=== PATIENT | male | born 1965 | race Asian ===

== ENCOUNTER → 2016-10-14 | Outpatient (CLI) | payer MEDICAID ==
[~2016-10-14] MED LIST: ASPI-621 PO; CARV6.2512 PO; FURO-93 PO; LISI-167 PO; POTA20TA14 PO
== END | disposition home or self-care (01) ==
LOC: CFH 11:24
PROVIDERS: ATTEND Internal Medicine
DX: I51.7 Cardiomegaly (principal)
CPT/HCPCS: 71020

== ENCOUNTER → 2016-12-09 | Outpatient (CLI) | payer MEDICAID | END | disposition home or self-care (01) | LOC: CFH 13:33 | PROVIDERS: ATTEND Internal Medicine Gastroenterology | DX: Z12.11 Encounter for screening for malignant neoplasm of colon (principal); K74.69 Other cirrhosis of liver; B18.2 Chronic viral hepatitis C; K29.70 Gastritis, unspecified, without bleeding; K26.3 Acute duodenal ulcer without hemorrhage or perforation | CPT/HCPCS: 76705 ==

== ENCOUNTER 2017-02-26 17:25 | Emergency (ER) | payer MEDICAID ==
[~2017-02-26] VITALS: Ht 172.7 cm; Wt 91.5 kg
[2017-02-26] MEDS ORDERED: SODIUM CHLORIDE FLUSH 10ML SYR IVF ONE (19:00)
[2017-02-26] MEDS ORDERED: SODIUM CHLORIDE 0.9% 1,000ML IVBOLUS ONE (19:00)
[2017-02-26 19:13] LABS: HEMATOCRIT 56.7 % (39.2-51.8); HEMOGLOBIN 18.9 g/dL (13.7-18.0); WHITE BLOOD COUNT 7.7 x10^3/uL (3.4-10)
[2017-02-26 19:24] LABS: BLOOD UREA NITROGEN 19 mg/dL (7-18)
[2017-02-26 19:25] LABS: IS PT STATUS REG ER OR PRE ER? YES
[2017-02-26 19:29] LABS: ASPARTATE AMINO TRANSFERASE 20 U/L (15-37)
[2017-02-26 19:42] VITALS: BP 144/101
== END 2017-02-26 20:42 | disposition home or self-care (01) ==
LOC: ED 18:16
DX: I11.0 Hypertensive heart disease with heart failure (principal); I50.9 Heart failure, unspecified
CPT/HCPCS: 36415; 80053; 84484; 85025; 93005; 99285; J7030

== ENCOUNTER → 2017-07-07 | Outpatient (CLI) | payer MEDICAID | END | disposition home or self-care (01) | LOC: CFH 08:16 | PROVIDERS: ATTEND Internal Medicine Gastroenterology | DX: B18.2 Chronic viral hepatitis C (principal); K74.60 Unspecified cirrhosis of liver | CPT/HCPCS: 76705 ==

== ENCOUNTER → 2018-03-12 | Outpatient (CLI) | payer MEDICAID | END | disposition home or self-care (01) | LOC: CFH 08:23 | PROVIDERS: ATTEND Internal Medicine Gastroenterology | DX: K74.69 Other cirrhosis of liver (principal); B18.2 Chronic viral hepatitis C; C22.0 Liver cell carcinoma; I50.9 Heart failure, unspecified | CPT/HCPCS: 76705 ==

== ENCOUNTER → 2019-07-19 | Outpatient (CLI) | payer MEDICAID ==
[~2019-07-19] MED LIST changes: -ASPI-621 PO; +ASPI81TA45 PO
== END | disposition home or self-care (01) ==
LOC: CFH 14:54 → EDSTATUS 15:15
PROVIDERS: ATTEND Registered Nurse
DX: I08.8 Other rheumatic multiple valve diseases (principal); I11.9 Hypertensive heart disease without heart failure; I42.9 Cardiomyopathy, unspecified; Z87.891 Personal history of nicotine dependence
CPT/HCPCS: 93306

== ENCOUNTER 2020-12-11 09:12 | Day surgery (SDC) | payer MEDICAID ==
[~2020-12-11] VITALS: Ht 172.7 cm; Wt 75.0 kg
[2020-12-11] MEDS ORDERED: DIPHENHYDRAMINE 50 MG/ML, 1ML IVPush ONE (09:30)
[2020-12-11] MEDS ORDERED: MIDAZOLAM 1 MG/ML, 2ML ONE (09:33)
[2020-12-11] MEDS ORDERED: LIDOCAINE-MPF 1%, 5ML ONE (09:33)
[2020-12-11] MEDS ORDERED: FENTANYL PF 100 MCG/2ML ONE (09:33)
[2020-12-11] MEDS ORDERED: LOSA100T14 PO (09:35)
[2020-12-11] MEDS ORDERED: ISOS10TA2 PO (09:36)
[2020-12-11] MEDS ORDERED: HYDR-3342 PO (09:36)
[2020-12-11] MEDS ORDERED: CARV25TA12 PO (09:38)
[2020-12-11] MEDS ORDERED: ALBU90AE2 INH (09:39)
[2020-12-11] MEDS ORDERED: UMEC1DIS INH (09:39)
[2020-12-11] MEDS ORDERED: DIPHENHYDRAMINE 50 MG/ML, 1ML ONE (09:40)
[2020-12-11 09:47] VITALS: BP 125/84
[2020-12-11 09:52] LABS: BASOPHILS % (AUTO) 1 % (0-1); EOSINOPHILS % (AUTO) 6 % (1-7); LYMPHOCYTES % (AUTO) 20 % (22-44); MEAN CORPUSCULAR HEMOGLOBIN 32.8 pg (27.5-34.5); MEAN CORPUSCULAR HGB CONC 33.2 g/dL (33.2-36.2); MONOCYTES % (AUTO) 12 % (2-9); NEUTROPHILS % (AUTO) 61 % (42-75); PLATELET COUNT 146 x10^3/uL (130-400); RED BLOOD COUNT 5.27 x10^6/uL (4.38-5.82); RED CELL DISTRIBUTION WIDTH 14.6 % (9.4-14.8)
[2020-12-11 10:04] LABS: ANION GAP 6 mmol/L (5-15); CALCIUM 8.2 mg/dL (8.5-10.1); CHLORIDE 114 mmol/L (98-107); CREATININE 0.86 mg/dL (0.7-1.3)
== END 2020-12-11 14:35 | disposition home or self-care (01) ==
LOC: CACL 09:12
PROVIDERS: ATTEND Internal Medicine Cardiovascular Disease
DX: I27.89 Other specified pulmonary heart diseases (principal); I42.8 Other cardiomyopathies; J44.9 Chronic obstructive pulmonary disease, unspecified; F17.210 Nicotine dependence, cigarettes, uncomplicated; Z79.82 Long term (current) use of aspirin; Z79.899 Other long term (current) drug therapy; Z98.890 Other specified postprocedural states
CPT/HCPCS: 36415; 80048; 82803; 85025; 93451; 99156; 99157; C1769; C1894; J1200; J2250; J3010